=== PATIENT | male | born 1960 | race Caucasian/White ===

== ENCOUNTER 2022-04-02 07:08 | Outpatient (CLI) | payer OTHER, SELFPAY ==
[2022-04-02 10:03] LABS: Chloride* 103 mmol/L (96-114); Potassium* 4.3 mmol/L (3.6-5.1); Sodium* 141 mmol/L (135-149)
[2022-04-02 10:06] LABS: Blood Urea Nitrogen* 19 mg/dL (7-30); Carbon Dioxide* 29 mmol/L (20-32); Cholesterol* 216 mg/dL (90-199); Creatinine* 1.2 mg/dL (0.5-1.5); Estimated Glomerular Filt Rate 69 ml/min; Glucose* 107 mg/dL (60-115); Triglycerides* 112 mg/dL (40-149)
[2022-04-02 10:07] LABS: HDL Cholesterol* 57 mg/dL (>=40); LDL Cholesterol Calculated 137 mg/dL (<100)
[2022-04-02 10:10] LABS: Hemoglobin A1C* 5.85 % (0-5.6)
== END 2022-04-02 07:09 | disposition home or self-care (01) ==
PROVIDERS: PCP Family Medicine; Visit Provider Family Medicine
DX: R73.09 Other abnormal glucose (principal)
CPT/HCPCS: 36415; 80048; 80061; 83036

== ENCOUNTER 2023-03-13 11:22 | Outpatient (CLI) | payer OTHER, SELFPAY | END 2023-03-13 11:23 | disposition home or self-care (01) | PROVIDERS: PCP Family Medicine; Visit Provider Family Medicine | DX: Z01.818 Encounter for other preprocedural examination (principal); R78.5 Finding of other psychotropic drug in blood; R73.09 Other abnormal glucose; Z12.5 Encounter for screening for malignant neoplasm of prostate | CPT/HCPCS: 80048; 80061; 84153; 84460 ==

== ENCOUNTER 2023-03-30 08:35 | Outpatient (CLI) | payer OTHER, SELFPAY ==
--- NOTE | 2023-03-30 10:02 | W.ANESCHARGE ---
Anesthesia Charges Start Date/Time Anesthesia Start Date: 03/30/23 Anesthesia Start Time: 09:33 Stop Date/Time Anesthesia Stop Date: 03/30/23 Anesthesia Stop Time: 09:59
--- NOTE | 2023-03-30 10:03 | W.ANESCHARGE ---
Anesthesia Charges Start Date/Time Anesthesia Start Date: 03/30/23 Anesthesia Start Time: 09:33 Stop Date/Time Anesthesia Stop Date: 03/30/23 Anesthesia Stop Time: 09:59
== END 2023-03-30 08:36 | disposition home or self-care (01) ==
PROVIDERS: PCP Family Medicine; Visit Provider Internal Medicine Gastroenterology
DX: Z12.11 Encounter for screening for malignant neoplasm of colon (principal); K63.5 Polyp of colon
CPT/HCPCS: 00811; 45380; 88305; J2704

== ENCOUNTER 2023-04-07 12:39 | Outpatient (CLI) | payer OTHER, SELFPAY ==
[2023-04-07 13:55] VITALS: BP 174/82; PULSE 107; RESP 18
[2023-04-07] MEDS: PERFLUTREN LIPID MICROSPHERES 2 ML VIAL IV (13:57)
--- NOTE | 2023-04-07 14:24 | W.PM.STED ---
Stress Test Note Date Date of test: 04/07/23 Providers Primary care provider: Newton Mathias Stress test physician: Erick Frye Stress Test Note Stress test ordered: Stress Echo Indication for test: chest pain Stress test medicine: Definity Results discussion: This very nice 62-year-old gentleman presents for the above test after discussion the risks benefits side effects he would like to proceed, cardiac stress test medical history form is reviewed. Pretest EKG shows rhythm to be sinus, with a ventricular rate of 86, blood pressure 144/82. Patient is exercised for a total time 14 minutes, she achieved a metabolic equivalent of 14.5 Mets, test is terminated because of fulfillment of protocol, there was no chest pain shortness of breath or any other anginal equivalents. Review of the tracing showed no appreciable diagnostic ST wave depression suggestive of ischemia. Patient exercised to a very high level, and conditioning was felt to be excellent. Impression: Negative electrographic portion of stress echo Follow up suggested: Await echo imaging, Cardiology will review, clinical correlation with this will be needed. Patient left this testing facility in excellent condition.
== END 2023-04-07 13:58 | disposition home or self-care (01) ==
PROVIDERS: PCP Family Medicine; Visit Provider Family Medicine
DX: R07.9 Chest pain, unspecified (principal)
CPT/HCPCS: 93016; 93325; 93351; Q9957

== ENCOUNTER 2024-04-15 10:35 | Outpatient (CLI) | payer OTHER, SELFPAY ==
--- OUTSIDE RECORDS SUMMARY | 2024-04-15 10:37 | XMS_ITS | Clinical Summary ---
Author Organization [facility] Address [place], [place] [address] Care Team Providers Care Banquet Prep Cook Name Role Phone Newton Mathias MD Primary Care Provider + Allergies No known active allergies Medications Medication Sig Dispensed Refills Start Date End Date Status celecoxib (CeleBREX) 200 mg capsule 11/05/2021 Active atorvastatin (LIPITOR) 10 mg tabletIndications:Hyperl ipidemia, unspecified hyperlipidemia type TAKE 1 TABLET(10 MG) BY MOUTH EVERY DAY 90 Tablet 11/11/2023 Active Active Problems Problem Noted Date Diagnosed Date Colon polyp 04/01/2023 Overview (04/01/2023): Colonoscopy 03/2023 TA, repeat in 7 years Knee pain, bilateral 05/03/2015 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 Hyperplastic colon polyp 07/30/2012 Overview (03/30/2023): Colonoscopy 07/2012 polyp repeat in 10 years Osteoarthritis 06/25/2012 Hypovitaminosis D 06/25/2012 Hyperlipidemia 06/25/2012 H/O testicular cancer 06/25/2012 GERD (gastroesophageal reflux disease) 2 Overview (07/30/2012): EGD 07/2012 H. 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 Bilateral shoulder pain 06/25/2012 Bilateral ankle pain 06/25/2012 Prostatic enlargement 06/24/2012 Immunizations Name Administration Dates Next Due COVID-19 vaccine (PhosImmuneBio NTech 30mcg/0.3mL) PF, MDV 07/31/2020,07/11/2020 Influenza A (H1N1), Inactiva alek (Age >=3 Years) 05/15/2009 Influenza RIV4 (Age 18+ Year s) PRESERV FREE 04/20/2019 Influenza, IIV3 (Age 6-35 mos) 8,05/03/2013,06/02/2012,2010,04/22/2010 Influenza, IIV3 (Age >=3 years) 05/31/2014 Influenza, IIV4 05/11/2017,04/09/2016,05/16/2015 Influenza, IIV4 (=>6mos) MDV 04/17/2021 Tdap 05/03/2015 Family History Medical History Relation Name Comments GI Disease Brother Simone Cancer Father Unknown primary - possibly lung Heart Disease Father Parkinsonism Mother Cancer-colon No Family History Cancer-prostate No Family History Relation Name Status Comments Brother Father Mother Alive Social History Tobacco Use Types Packs/Day Years Used Date Smoking Tobacco: Never Smokeless Tobacco: Never Tobacco Cessation:Counseling Given: Yes Alcohol Use Standard Drinks/Week Comments Yes 0 (1 standard drink = 0.6 oz pur e alcohol) couple drinks a week PHQ-2 Answer Date Recorded PHQ-2 TOTAL SCORE 0 11/08/2021 Social Connections Answer Date Recorded Frequency of Communication with Friends and Fami ly Not on file 11/08/2021 Sex and Gender Information Value Date Recorded Sex Assigned at Not on file Gender Identity Not on file Sexual Orientation Not on file Obstetrics History Last Filed Vital Signs Vital Sign Reading Time Taken Comments Blood Pressure 120/85 11/08/2021 8:43 AM CDT Pulse 94 11/08/2021 8:43 AM CDT Temperature 36.4 ??C (97.6 ??F) 05/03/2015 9:54 AM CD T Respiratory Rate - - Oxygen Saturation 96% 11/08/2021 8:43 AM CDT Inhaled Oxygen Concentration - - Weight 90.8 kg (200 lb 3.2 oz) 11/08/2021 8:43 A M CDT Height 176 cm (5' 9.29) 11/08/2021 8:43 AM CDT Body Mass Index 29.32 11/08/2021 8:43 AM CDT Plan of Treatment Health Maintenance Due Date Last Done Comments HIV for age 15-65 1976 Zoster (shingles) series for age 50+ (1 of 2) 2011 BMI (ht and wt on same day) for age 18+ 11/08/2022 11/08/2021 Depression screening for age 12+ 11/08/2022 11/08/2021 COVID-19 vaccine series ( season) 2024 05/14/2021, 07/31/2020, 07/11/2020 Influenza for age 50-64 03/20/2024 04/17/20 21, 04/20/2019, 05/11/2017, Additional history exists Tetanus booster 05/03/2025 05/03/2015, 01/2007 (Completed outside of [facility]) Lipids for age 45-75 11/08/2026 11/08/2021, 05/03/2015, 06/15/2012 (Completed outside of [facility]) Colonoscopy through age 75 03/30/203003/30, 03/30/2023, 07/29/2012, Additional history exists Tdap Completed 05/03/2015, 05/03/2015 Hepatitis C screening for age 18-79 Completed 11/08/2021 Pneumococcal series for age 6-64 Aged Out No longer eligible based on patient's age to complete this topic Procedures Procedure Name Priority Date/Time Associated Diagnosis Comments SCAN-COLONOSCOPY 03/30/2023 12:0 0 AM CDT ANTI HCV Routine 11/08/2021 9:22 AM CDT Need for hepatitis C screening test LIPID PANEL Routine 11/08/2021 9:22 AM CDT Hyperlipidemia, unspecified hyperlipidemia type from Last 3 Months or Most Recently Relevant to Health Maintenance Results * SCAN-COLONOSCOPY (03/30/2023 12:00 AM CDT) Scanner OTHER * ANTI HCV (11/08/2021 9:22 AM CDT) HEPATITIS C ANTIBODY Non-React michael Non-React michael 11/08/2021 6:19 PM CDT [facility] Comment:Antibodies to HCV no t detected; does not exclude the possibility of exposure to HCV. Blood BLOOD SPECIMEN / Unknown Venipuncture / Unknown 11/08/2021 9:22 AM CDT 11/08/2021 9:22 AM CDT Mando Verma MD SEND OUTS [facility] [address] [place] [address], * LIPID PANEL (11/08/2021 9:22 AM CDT) CHOLESTEROL,TOTAL 160 100 - 199 mg/dL 11/08/2021 6:09 PM CDT [facility] TRIGLYCERIDES 38 <150 mg/dL 11/08/2021 6:09 PM CDT [facility] HDL CHOLESTEROL 54 >40 mg/dL 6:09 PM CDT [facility] NON-HDL CHOLESTEROL 106 <145 mg/dl 11/08/2021 6:09 PM CDT [facility] CHOL/HDL RATIO 2.96 <4.50 11/08/2021 6:09 PM CDT [facility] LDL CHOLESTEROL 98 <=130 mg/dL 11/08/2021 6:09 PM CDT [facility] VLDL CHOLESTEROL 8 <=30 mg/dL 11/08/2021 6:09 PM CDT [facility] PROVIDER ORDERED STATUS RANDOM 11/08/2021 6:09 PM CDT [facility] Blood BLOOD SPECIMEN / Unknown Venipuncture / Unknown 11/08/2021 9:22 AM CDT 11/08/2021 9:22 AM CDT Mando Verma MD CHEMISTRY [facility] [address] [place] [address] [address] [place] [address], [place] from Last 3 Months or Most Recently Relevant to Health Maintenance Care Teams Banquet Prep Cook Relationship Specialty Start Date End Date Newton Mathias MD [address] [place] [address] PCP - General Family Practice 04/14/23
== END 2024-04-15 10:36 | disposition home or self-care (01) ==
LOC: CT 10:35
PROVIDERS: PCP Family Medicine; Visit Provider Orthopaedic Surgery Sports Medicine
DX: M19.012 Primary osteoarthritis, left shoulder (principal); Z01.818 Encounter for other preprocedural examination
CPT/HCPCS: 73200; A9270

== ENCOUNTER 2024-05-11 09:22 | Outpatient (CLI) | payer OTHER, SELFPAY ==
--- OUTSIDE RECORDS SUMMARY | 2024-05-11 09:26 | XMS_ITS | Clinical Summary ---
Author Organization [facility] Address [place], [place] [address] Care Team Providers Care Local Company Tanker Driver Name Role Phone Newton Mathias MD Primary [...] Name Administration Dates Next Due COVID-19 vaccine (EnjectBio NTech 30mcg/0.3mL) PF, MDV 07/31/2020,07/11/2020 Influenza A [...] booster 05/03/2025 05/03/2015, 01/2007 (Completed outside of [facility]) Lipids for age 45-75 11/08/2026 11/08/2021, 05/03/2015, 06/15/2012 (Completed outside of [facility]) Colonoscopy through age 75 03/30/203003/30, 03/30/2023, 07/29/2012, [...] michael Non-React michael 11/08/2021 6:19 PM CDT [facility] Comment:Antibodies to HCV no t detected; does not exclude the possibility of exposure to HCV. Blood BLOOD SPECIMEN / Unknown Venipuncture / Unknown 11/08/2021 9:22 AM CDT 11/08/2021 9:22 AM CDT Mando Verma MD SEND OUTS [facility] [address] [place] [address], * LIPID PANEL (11/08/2021 9:22 AM CDT) CHOLESTEROL,TOTAL 160 100 - 199 mg/dL 11/08/2021 6:09 PM CDT [facility] TRIGLYCERIDES 38 <150 mg/dL 11/08/2021 6:09 PM CDT [facility] HDL CHOLESTEROL 54 >40 mg/dL 6:09 PM CDT [facility] NON-HDL CHOLESTEROL 106 <145 mg/dl 11/08/2021 6:09 PM CDT [facility] CHOL/HDL RATIO 2.96 <4.50 11/08/2021 6:09 PM CDT [facility] LDL CHOLESTEROL 98 <=130 mg/dL 11/08/2021 6:09 PM CDT [facility] VLDL CHOLESTEROL 8 <=30 mg/dL 11/08/2021 6:09 PM CDT [facility] PROVIDER ORDERED STATUS RANDOM 11/08/2021 6:09 PM CDT [facility] Blood BLOOD SPECIMEN / Unknown Venipuncture / Unknown 11/08/2021 9:22 AM CDT 11/08/2021 9:22 AM CDT Mando Verma MD CHEMISTRY [facility] [address] [place] [address] [address] [place] [address], [place] from Last 3 Months or Most Recently Relevant to Health Maintenance Care Teams Local Company Tanker Driver Relationship Specialty Start Date End Date Newton Mathias MD [address] [place] [address] PCP - General Family Practice 04/14/23
== END 2024-05-11 09:23 | disposition home or self-care (01) ==
PROVIDERS: PCP Family Medicine; Visit Provider Family Medicine
DX: E78.5 Hyperlipidemia, unspecified (principal); R73.09 Other abnormal glucose; Z12.5 Encounter for screening for malignant neoplasm of prostate; Z13.0 Encounter for screening for diseases of the blood and blood-forming organs and certain disorders involving the immune mechanism
CPT/HCPCS: 80048; 80061; 84460; 85025; G0103

== ENCOUNTER 2024-05-16 06:00 | Day surgery (SDC) | payer OTHER, SELFPAY ==
[2024-05-16] VITALS (19 sets, daily range): BP systolic 108–136; BP diastolic 60–90; PULSE 60–85; RESP 16–20; TEMP 36.3–36.4; O2SAT 91–99; BMI 29.7
--- OUTSIDE RECORDS SUMMARY | 2024-05-16 06:03 | XMS_ITS | Clinical Summary ---
Author Organization [facility] Address [place], [place] [address] Care Team Providers Care Lumber Driver Name Role Phone Newton Mathias MD [...] Name Administration Dates Next Due COVID-19 vaccine (ThirstyBio NTech 30mcg/0.3mL) PF, MDV 07/31/2020,07/11/2020 Influenza A [...] booster 05/03/2025 05/03/2015, 01/2007 (Completed outside of [facility]) Lipids for age 45-75 11/08/2026 11/08/2021, 05/03/2015, 06/15/2012 (Completed outside of [facility]) Colonoscopy through age 75 03/30/203003/30, 03/30/2023, 07/29/2012, [...] michael Non-React michael 11/08/2021 6:19 PM CDT [facility] Comment:Antibodies to HCV no t detected; does not exclude the possibility of exposure to HCV. Blood BLOOD SPECIMEN / Unknown Venipuncture / Unknown 11/08/2021 9:22 AM CDT 11/08/2021 9:22 AM CDT Mando Verma MD SEND OUTS [facility] [address] [place] [address], * LIPID PANEL (11/08/2021 9:22 AM CDT) CHOLESTEROL,TOTAL 160 100 - 199 mg/dL 11/08/2021 6:09 PM CDT [facility] TRIGLYCERIDES 38 <150 mg/dL 11/08/2021 6:09 PM CDT [facility] HDL CHOLESTEROL 54 >40 mg/dL 6:09 PM CDT [facility] NON-HDL CHOLESTEROL 106 <145 mg/dl 11/08/2021 6:09 PM CDT [facility] CHOL/HDL RATIO 2.96 <4.50 11/08/2021 6:09 PM CDT [facility] LDL CHOLESTEROL 98 <=130 mg/dL 11/08/2021 6:09 PM CDT [facility] VLDL CHOLESTEROL 8 <=30 mg/dL 11/08/2021 6:09 PM CDT [facility] PROVIDER ORDERED STATUS RANDOM 11/08/2021 6:09 PM CDT [facility] Blood BLOOD SPECIMEN / Unknown Venipuncture / Unknown 11/08/2021 9:22 AM CDT 11/08/2021 9:22 AM CDT Mando Verma MD CHEMISTRY [facility] [address] [place] [address] [address] [place] [address], [place] from Last 3 Months or Most Recently Relevant to Health Maintenance Care Teams Lumber Driver Relationship Specialty Start Date End Date Newton Mathias MD [address] [place] [address] PCP - General Family Practice 04/14/23
[2024-05-16] MEDS: SODIUM CHLORIDE 0.9 % (FLUSH) 10 ML SYRINGE IVF (06:41)
--- NOTE | 2024-05-16 06:54 | W.PM.H&PU ---
History & Physical Update History & Physical Update H&P Reviewed and patient assessed: No changes noted
[2024-05-16] MEDS: ACETAMINOPHEN 500 MG TABLET 1000 MG PO (06:56)
[2024-05-16] MEDS: OXYCODONE (CR) 10 MG TAB.ER.12H PO (06:56)
[2024-05-16] MEDS: CELECOXIB 200 MG CAPSULE PO (06:57)
[2024-05-16] MEDS: LACTATED RINGERS 1000 ML 1,000 ML 100 ML IV (07:15)
[2024-05-16] MEDS: MIDAZOLAM HCL 1 MG/ML inj IVP (07:16)
[2024-05-16] MEDS: fentaNYL 100 MCG/2 ML inj IVP (07:16)
--- NOTE | 2024-05-16 07:21 | SUR.PREOP ---
TIME?OUT:?0714 PT/RN/MDA?VERIFICATION?OF?SURGICAL?SITE Left Shoulder,?PROCEDURE Nerve Block,?AND?CONSENT OBTAINED?PRIOR?TO?INVASIVE?PROCEDURE.
[2024-05-16] MEDS: CEFAZOLIN 2 GM in 0.9 % SODIUM CHLORIDE Mini-bag 100 ML IVPB (07:35)
[2024-05-16] MEDS: TRANEXAMIC ACID 100 MG/ML INJ 1000 MG IV (07:40)
--- NOTE | 2024-05-16 09:33 | W.PM.NB ---
Nerve Block Nerve Block Time Seen by Provider: 07:15 Date Seen: 05/16/24 Type of block requested by surgeon for post-operative analgesia: supraclavicular Time out performed: Yes Verification of patient name: Yes Verification of date of : Yes Site marking: site marked Name of person performing procedure: Aneesh Continuous monitoring Was continuous monitoring of O2 sat, B/P, fixed income trading vice president, recorded every 15 minutes?: Yes Procedure Checklist: sterile prep, needles and gloves Ultrasound guided. Images saved: Yes Medications given in 5ml increments after negative aspiration: Marcaine %: 0.25 mL: 10 Needle gauge: 22 and Exparel mL: 10 Needle gauge: 22 Patient tolerated procedure well: Yes Block Charges Block Charge (with Pro Fee): Brachial Plexus Use of Ultrasound Machine for Block: Yes- US Guidance/pain block
--- NOTE | 2024-05-16 09:34 | W.ANESCHARGE ---
Anesthesia Charges Start Date/Time Anesthesia Start Date: 05/16/24 Anesthesia Start Time: 07:25 Stop Date/Time Anesthesia Stop Date: 05/16/24 Anesthesia Stop Time: 09:58
--- NOTE | 2024-05-16 09:52 | CRLHL7_ITS ---
For Patients: As a result of the Century Cures Act, medical imaging exams and procedure reports are released immediately into your electronic medical record. You may view this report before your referring provider. If you have questions, please contact your health care provider. Indication: Postop left shoulder replacement Technique: Three views left shoulder Comparison: Left shoulder 03/04/2024 Findings/Impression: The patient is status post left shoulder replacement with near anatomic alignment. No evidence of fracture surrounding the hardware. Acromioclavicular joint unremarkable. Dictated by Hayden Christy MD @ 05/16/2024 10:25:14 AM (Electronically Signed)
--- NOTE | 2024-05-16 10:01 | W.ANESCHARGE ---
Anesthesia Charges Start Date/Time Anesthesia Start Date: 05/16/24 Anesthesia Start Time: 07:25 Stop Date/Time Anesthesia Stop Date: 05/16/24 Anesthesia Stop Time: 09:58
--- NOTE | 2024-05-17 08:04 | PM.ORPRC ---
Procedure Note Date of procedure: 05/16/24 Procedure: PREOPERATIVE DIAGNOSIS: 1. Left shoulder osteoarthrosis, primary, severe POSTOPERATIVE DIAGNOSIS: 1. Left shoulder osteoarthrosis, primary, severe 2. Left shoulder long head of biceps tendinopathy / tenosynovitis PROCEDURE: 1. Left total shoulder arthroplasty-anatomic. 2. Left shoulder long head of biceps open tenodesis] SURGEON: Errol Davidson MD. DANCE TEACHER: Mando Beverly PA-C; Antonio SMITH - Of note, a skilled speech language pathology assistant was critical for this case to aid in patient positioning, tissue retraction, limb manipulation/positioning, awareness of and protection of critical structures, and closure. ANESTHESIA: General plus interscalene block EBL: 100 mL IMPLANTS: Tornier Simplicity Shoulder System. Size 2 Blazer. 48 x 18 mm humeral head; Medium Perform+ 25? glenoid with a 40mm radius of curvature - cortilock central peg with cemented peripheral pegs COMPLICATIONS: None evident INDICATIONS: The patient is a pleasant 63-year-old male who has experienced severe left shoulder pain and difficulty with use. Workup included x-rays which revealed severe osteoarthrosis. Physical exam was consistent with associated pain. Given the deformity, the dysfunction, and the pain, recommendation was made for surgery. DESCRIPTION OF PROCEDURE: Following a thorough discussion of risks, benefits, and alternatives, consent was obtained and the left shoulder was marked. The patient was brought to the operating room and placed supine on the operating table. Induction of anesthesia was undertaken. 2 g IV Ancef and 1 g tranexamic acid was administered within 1 hr of incision preoperatively. Appropriate time-out was performed identifying proper patient, site, and procedure. The operative extremity was prepped and draped in the appropriate sterile fashion using ChloraPrep after the patient was positioned in the beach chair with head in neutral alignment and all bony prominences well padded. A longitudinal incision was made for deltopectoral approach. Deltoid and cephalic vein were retracted laterally and spared throughout the case. The clavipectoral fascia was identified and divided longitudinally staying lateral to the conjoined tendon / coracoid. The conjoined tendon was protected with a blunt Hohmann. The long head of the biceps tendon was identified and tenodesis performed suturing it to the pectoralis major tendon at their confluence. The upper 1cm of the pectoralis major was 1st released from its insertion. The superior portion of the rotator cuff was inspected and found to have good integrity. The subscapularis was released from its lesser tuberosity via a tenotomy down through the 3 sisters which were cauterized. After releasing the subscapularis, the capsule was released from the inferior humeral neck allowing us to remove the inferior humeral head osteophyte. The subscapularis was also released from the superior glenohumeral ligament and middle glenohumeral ligament. It was then tucked into the subscapularis fossa anteriorly, and we turned our attention to the humeral preparation. The humerus was dislocated, and humeral head cut performed paying attention to the patient's lower elwha version anatomy. With the simplicity protocol, the guide pin was drilled through the lateral humeral cortex, a Blazer size 2 was applied, and the humerus was planed. The humerus was then protected with a plate and attention was turned to the glenoid preparation. The humerus was retracted posteriorly. The subscap was protected anteriorly and the labrum was released along the glenoid anterior, inferior and posterioinferior regions via combination of Bovie cautery or 15 blade. Based on the preoperative CT scan of the shoulder, the shoulder was found have approximately 25? of retroversion to the 'B2' type glenoid. The goal of correction was to make this neutral between reaming and an augmented/wedged glenoid component. The blueprint 3D printed guide/jog was applied to the lower elwha glenoid. The guide pin was placed and the subsequent preparation performed with Reamer down to cortical/subchondral bone, followed by the rotation alignment hole, angled Reamer, peripheral pegs, and central boss drill. A glenoid trial was placed with good security, and the real glenoid implant opened. Cement was mixed on the back table. Thorough irrigation normal saline of the glenoid vault was performed with suction of the peg holes. Cement into the 3 peripheral peg holes was performed and the glenoid component inserted and held until cement had cured. We then turned our attention back to the humerus. Consistent with the preop planning, the appropriate head was selected, trialed, and found have an excellent fixation and tension. 50% bounce-back was visualized with posterior directed force, internal rotation was achieved to 60? comfortably while the shoulder was abducted to 90?, and the conjoined tendon had good tension. At this stage, a 3 min Betadine soak was performed followed by a thorough irrigation with normal saline. Subscapularis was reapproximated with # 1 PDS (x4). The rotator interval was reapproximated as well. The deltopectoral interval was reapproximated with 0 Vicryl, subcutaneous and subcuticular closure was then performed with number 2-0 Vicryl and 4-0 Monocryl, respectively. A skilled speech language pathology assistant was critical for this case to aid in patient positioning, tissue retraction, bone exposure, limb manipulation/positioning, shoulder dislocation/relocation, patient safety, and closure. PLAN: 1. Sling much of the time to operative extremity. May come out of this for elbow, forearm, wrist, and digit range of motion and pendulums, or when sedentary. 2. PT/OT consults for education and assistance. 3. Tylenol, Ibuprofen, and/or Oxycodone for analgesics PRN. 4. 14 days doxycycline PO. 5. Early ambulation encouraged.
== END 2024-05-16 13:48 | disposition home or self-care (01) ==
LOC: OR 06:01
PROVIDERS: PCP Family Medicine; Visit Provider Orthopaedic Surgery Sports Medicine
PROC: 0RRJ0JZ Replacement of Right Shoulder Joint with Synthetic Substitute, Open Approach (ICD-10-PCS; CPT 23472; principal; 2024-05-16 07:15)
DX: M19.012 Primary osteoarthritis, left shoulder (principal); G89.18 Other acute postprocedural pain; M75.22 Bicipital tendinitis, left shoulder; M65.812 Other synovitis and tenosynovitis, left shoulder
CPT/HCPCS: 23472; 23430; 01638; 64415; 73030; 76942; 97165; 97535; A9270; C1776; C9290; J0330; J0665; J0690; J1100; J2250; J2405; J2704; J3010; J3490; J7120

== ENCOUNTER 2024-08-01 11:15 | Outpatient (RCR) | payer OTHER, SELFPAY | END 2024-11-29 23:59 | disposition home or self-care (01) | PROVIDERS: PCP Family Medicine; Visit Provider Orthopaedic Surgery Sports Medicine | DX: M19.012 Primary osteoarthritis, left shoulder (principal); Z96.612 Presence of left artificial shoulder joint; Z51.89 Encounter for other specified aftercare | CPT/HCPCS: 97110; 97140; 97161 ==

== ENCOUNTER 2025-01-23 08:00 | Emergency (ER) | payer OTHER, SELFPAY ==
--- NOTE | 2025-01-23 08:02 | MR_ITS ---
EXAM: MRI of the LEFT KNEE, without contrast CLINICAL: Male, 64 years old, with left knee pain. INDICATION: Evaluate for left knee internal derangement etiology. PRIOR SURGERY: Reported history of partial meniscectomy. PLAIN FILMS: 08/28/2020 radiographic series left knee. COMPARISONS: 12/07/2012 MRI of the left knee. TECHNICAL: Using a 1.5 Eloisa MR scanner and a localizing surface coil: 3.0 mm?sagittals: PD, PDFS 3.0 mm?coronals: PD, STIR 3.0 mm?axials: PD, T2FS SEDATION: None. CONTRAST: None. IMPRESSION: 1. Inferior surface irregularity of the medial meniscus posterior horn with questioned adjacent subluxation of meniscal segment towards the inferior meniscosynovial recess. 2. Approximately 1 cm attenuation/irregularity of inferior surface and adjacent apex of junction of lateral meniscus posterior horn. 3. 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 4. Small towards moderate knee effusion and popliteal cyst. 5. No acute or convincing chronic cruciate or collateral ligament injuries. FINDINGS: Knee joint: Effusion: Small towards moderate left knee effusion. Popliteal cyst: Small elongate popliteal cyst with some adjacent uncontained edema/fluid as could reflect an element of cyst rupture/leakage. Loose bodies: Small 5 x 1.5 mm chondral loose body in the far posterior knee superior to the medial meniscus posterior root (sagittal image 13). No other convincing discrete loose bodies. Subcutaneous and extra-articular soft tissues: Unremarkable. Ligaments: ACL: Intact and normal. PCL: Intact and normal. MCL: Intact and normal. FCL: Intact and normal. Posterolateral corner: Intact popliteus, biceps femoris, iliotibial band, popliteofibular ligament and lateral gastrocnemius. Posteromedial corner: Intact pes anserinus and posterior oblique ligament. Extensor mechanism: Patellar tendon: Intact and normal. Quadriceps tendon: Intact and normal. Retinacula: Intact and normal. Fat pads: Unremarkable. Medial compartment: Medial meniscus: Small less than 1 cm ill-defined shallow inferior surface signal alteration reflecting degeneration and likely some inferior surface fraying of the medial meniscus posterior horn, without larger tear (sagittal PDFS series 6, images 10-8). However, adjacent and peripheral to this deformity is questioned small slender meniscal flap segment subluxed towards/into the inferior meniscosynovial recess (coronal images 20-17). No parameniscal cyst. No posterior root disruption or peripheral meniscal extrusion. Medial femoral condyle: Up to 20 x 9 mm grade III-IV chondromalacia/defect of the central into the anterior aspect and medial femoral condyle is accompanied by slight subjacent reactive bone marrow edema (coronal STIR series 8, images 18-12). Medial tibial plateau: No demonstrable chondromalacia. Lateral compartment: Lateral meniscus: Approximately 1 cm deformity/attenuation of inferior surface into adjacent to apical free edge of the lateral meniscus posterior horn is not seen to be associated with displaced meniscal fragment (sagittal images 22-25). Lateral femoral condyle: Approximately 15 x 15 mm grade III-IV chondromalacia/defect of the junction of the central and posterior lateral femoral condyle is accompanied by slight underlying cortical irregularity/hyperostosis, without subjacent reactive marrow edema at this time (sagittal images 20-23; coronal STIR series 8, image 23-20). Lateral tibial plateau: Grade II-III chondromalacia/thinning and some irregularity of the central into posterior lateral tibial plateau is not associated with subjacent reactive marrow edema at this time. Patellofemoral joint: Patella: Broad-based grade III-IV chondromalacia/loss of most of the patella is accompanied by smaller areas of slight to mild subjacent reactive marrow edema and slight marginal osteophyte formation (axial images 5-13). Trochlea: Also broad-based approximately 40 x 25 grade III-IV chondromalacia/loss of much of femoral trochlea is associated very small focus of slight subjacent reactive marrow edema at its medial extent. Proximal tibiofibular joint: Unremarkable. Bones: No other marrow edema or fractures. Neurovascular: Popliteal artery/vein: Normal. Anterior tibial artery: No aberrant variant. Tibial nerve: Normal. Popliteal nerve: Normal. Common peroneal nerve: Normal. [facility] Electronically signed on 01/24/2025 10:28:00 AM by Yonatan Zavaleta M.D.
--- OUTSIDE RECORDS SUMMARY | 2025-01-23 08:02 | XMS_ITS | Clinical Summary ---
Author Organization [facility] Address [address] [place] [id number] Care Team Providers Care Wedding Photographer Name Role Phone Newton Mathias MD Primary Care Provider + Allergies No known active allergies Medications celecoxib (CeleBREX) 200 mg capsule 2 Active atorvastatin (LIPITOR) 10 mg tabletIndications:H yperlipidemia, unspecified hyperlipidemia type TAKE 1 TABLET(10 MG) BY MOUTH EVERY DAY 90 Tablet 4 Active Active Problems Problem Noted Date Diagnosed [...] ankle pain 06/25/2012 Prostatic enlargement 06/24/2012 Immunizations Immunization Administration Dates Next Due COVID-19 vaccine (Filecubed-Bio NTech 30mcg/0.3mL) PF, MDV 07/31/2020,07/11/2020 Influenza A [...] Recorded Sex Assigned at Not on file Legal Sex Male 6:25 AM [employer] Gender Identity Not on file Sexual Orientation Not on file Obstetrics History Last Filed Vital Signs Vital Sign Reading Time Taken Comments Blood Pressure 120/85 11/08/2021 8:43 AM CDT Pulse 94 11/08/2021 8:43 AM CDT Temperature 36.4 C (97.6 F) 05/03/2015 9:54 AM CDT Respiratory Rate - - Oxygen Saturation 96% 11/08/2021 8:43 AM CDT Inhaled Oxygen Concentration - - Weight 90.8 kg (200 lb 3.2 oz) 11/08/2021 8:43 A M CDT Height 176 cm (5' 9.29) 11/08/2021 8:43 AM CDT Body Mass Index 29.32 11/08/2021 8:43 AM CDT Plan of Treatment Health Maintenance Due Date Last Done Comments HIV for age 15-65 1976 Pneumococcal series for age 50+ (1 of 1 - PCV) 2011 Zoster (shingles) series for age 50+ (1 of 2) 2011 BMI (ht and wt on same day) for age 18+ 11/08/2022 11/08/2021 Depression screening for age 12+ 11/08/2022 11/08/2021 COVID-19 vaccine series ( season) 2024 05/14/2021, 07/31/2020, 07/11/2020 Influenza Vaccine (#1) 2025 , 04/20/2019, 04/21/2018, Additional history exists Tetanus booster 05/03/2025 05/03/2015, 01/2007 (Completed outside of [facility] [employer]) Lipids for age 45-75 11/08/2026 11/08/2021, 05/03/2015, 06/15/2012 (Completed outside of [facility] [employer]) Colonoscopy through age 75 03/30/203003/30, 03/30/2023, 07/29/2012, Additional history exists RSV vaccine for adults or (1 - 1-dose 75+ series) 2036 Hepatitis C screening for age 18-79 Completed 11/08/2021 Hepatitis B series for 19+ Aged Out N o longer eligible based on patient's age to [...] Results * SCAN-COLONOSCOPY (03/30/2023 12:00 AM CDT) us Scanner OTHER Final Result * ANTI HCV (11/08/2021 9:22 AM CDT) HEPATITIS C ANTIBODY Non-React michael Non-React michael 11/08/2021 6:19 PM CDT [facility] Comment:Antibodies to HCV no t detected; does not exclude the possibility of exposure to HCV. Blood BLOOD SPECIMEN / Unknown Venipuncture / Unknown 11/08/2021 9:22 AM CDT 11/08/2021 9:22 AM CDT us Mando Verma MD SEND OUTS Final Resu lt [facility] [address] [place] [address], [place] * LIPID PANEL (11/08/2021 9:22 AM CDT) Pathologist [facility] CHOLESTEROL,TOTAL 160 100 - 199 mg/dL 11/08/2021 6:09 PM CDT [facility] TRIGLYCERIDES 38 <150 mg/dL 11/08/2021 6:09 PM CDT [facility] HDL CHOLESTEROL 54 >40 mg/dL 6:09 PM CDT [facility] NON-HDL CHOLESTEROL 106 <145 mg/dl 11/08/2021 6:09 PM CDT [facility] CHOL/HDL RATIO 2.96 <4.50 11/08/2021 6:09 PM CDT [facility] LDL CHOLESTEROL 98 <=130 mg/dL 11/08/2021 6:09 PM CDT [facility] VLDL CHOLESTEROL 8 <=30 mg/dL 11/08/2021 6:09 PM CDT [facility] PROVIDER ORDERED STATUS RANDOM 11/08/2021 6:09 PM CDT [facility] Blood BLOOD SPECIMEN / Unknown Venipuncture / Unknown 11/08/2021 9:22 AM CDT 11/08/2021 9:22 AM CDT us Mando Verma MD CHEMISTRY Final Resu lt [facility] [address] [place] [address], [place] from Last 3 Months or Most Recently Relevant to Health Maintenance Care Teams Wedding Photographer Relationship Specialty Start Date End Date Newton Mathias MD [address] [place] [address] PCP - General Family Practice 04/14/23
--- NOTE | 2025-01-23 08:14 | ED.GENADULT ---
HPI - General Adult General Chief complaint: Extremity Pain/Injury, Lower Stated complaint: left knee pain Time Seen by Provider: 01/23/25 08:04 Source: patient Mode of arrival: ambulatory Limitations: no limitations History of Present Illness HPI narrative: Patient presents with acute knee pain and swelling that started after golfing about 5 days ago. Partial meniscectomy in the past. Could not walk. Pain sharp in the medial and anterior knee, along joint line. Related Data Home Medications ?Medication ?Instructions ?Recorded ?Confirmed desonide 0.05 % topical ointment 1 applic topical .BIDQ2W 05/10/24 06/28/24 ketoconazole 2 % shampoo 1 applic topical .2-3XW 05/10/24 06/28/24 tazarotene 0.1 % topical cream 1 applic topical QDAY 05/10/24 06/28/24 celecoxib 200 mg capsule (Celebrex) 200 mg PO QDAY PRN 05/11/24 05/26/24 Previous Rx's ?Medication ?Instructions ?Recorded amoxicillin 500 mg capsule 2,000 mg (4 x 500 mg) PO ONCE #20 03/13/23 Held on 05/16/24. caps Instructions: Resume on 06/13/24. atorvastatin 20 mg tablet 20 mg PO QDAY #90 tabs 03/13/23 mupirocin 2 % topical ointment 1 applic topical TID #22 grams 05/09/24 doxycycline monohydrate 100 mg 100 mg PO BID #14 caps 05/16/24 capsule cephalexin 500 mg capsule 500 mg PO TID #30 caps 10/13/24 Allergies Allergy/AdvReac Type Severity Reaction Status Date / Time No Known Drug Allergies Allergy Verified 06/28/24 13:54 Review of Systems Status of ROS: Reports: 6 or more systems reviewed and unremarkable except as noted in History and below [facility] Medical History Osteoarthritis of left shoulder ?M19.012 - Primary osteoarthritis, left shoulder (ICD-10) History of testicular cancer ?Z85.47 - Personal history of malignant neoplasm of testis (ICD-10) Hyperlipidemia ?E78.5 - Hyperlipidemia, unspecified (ICD-10) Surgical History History of arthroplasty of left shoulder (05/17/24) ?Z96.612 - Presence of left artificial shoulder joint (ICD-10) History of arthroscopy of right knee (10/29/12) ?Z98.890 - Other specified postprocedural states (ICD-10) History of arthroscopy of left knee (12/10/12) ?Z98.890 - Other specified postprocedural states (ICD-10) History of arthroplasty of right shoulder (05/23/19) ?Z96.611 - Presence of right artificial shoulder joint (ICD-10) History of unilateral orchiectomy ?Z90.79 - Acquired absence of other genital organ(s) (ICD-10) History of appendectomy ?Z90.49 - Acquired absence of other specified parts of digestive tract (ICD-10) Family History Father Cancer Social History Narrative: , 2 kids, 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 Alert and oriented. Answers questions appropriately. Mood and affect are appropriate. Thoughts are goal oriented and rational. No tangential or magical thinking noted. Patient speaks in full sentences without needing to catch his breath. HEENT: Normocephalic atraumatic. Pupils are equally round reactive to light. Extraocular muscles are intact. Conjunctivae are moist without any icterus noted. Extremities: Swollen left knee no warmth. Joint effusion present. Limited range of motion. Const: Vital Signs, click to edit/add: Vital Signs - 24 hr 01/23/25 08:30 Temperature 98 F Pulse Rate [Right Pulse Oximeter] 66 Respiratory Rate 18 Blood Pressure [Ri ght Upper Arm] 147/92 H Pulse Oximetry 99 Oxygen Delivery Me thod Room Air Course Course ED Course: MRI ordered. Vital Signs Vital signs: Initial Vital Signs Temperature 98 F 01/23/25 08:30 Temperature Source Temporal Artery Scan 01/23/25 08:30 Pulse Rate 66 01/23/25 08:30 Pulse Rhythm Regular 01/23/25 08:30 Pulse Strength 3+ Normal 01/23/25 08:30 Respiratory Rate 18 01/23/25 08:30 Blood Pressure 147/92 H 01/23/25 08:30 Blood Pressure Mean 110 H 01/23/25 08:30 Blood Pressure Position Sitting 01/23/25 08:30 Pulse Oximetry 99 01/23/25 08:30 Oxygen Delivery Method Room Air 01/23/25 08:30 Vital Signs Temperature 98 F 01/23/25 08:30 Pulse Rate 66 01/23/25 08:30 Respiratory Rate 18 01/23/25 08:30 Blood Pressure 147/92 H 01/23/25 08:30 Pulse Oximetry 99 01/23/25 08:30 Oxygen Delivery Method Room Air 01/23/25 08:30 Temperature 98 F 01/23/25 08:30 Pulse Rate 66 01/23/25 08:30 Respiratory Rate 18 01/23/25 08:30 Blood Pressure 147/92 H 01/23/25 08:30 Pulse Oximetry 99 01/23/25 08:30 Oxygen Delivery Method Room Air 01/23/25 08:30 Medical Decision Making MDM Narrative Medical decision making narrative: Knee pain. MRI ordered to rule out meniscal injury. Ortho follow-up tomorrow. Discharge Plan Discharge Clinical Impression: Knee pain Patient Disposition: Home, Self-Care Condition: Stable Prescriptions: No Action tazarotene 0.1 % cream 1 applic topical QDAY Rx Instructions: Apply to affected areas on the forehead 1X daily at night. Start every other night then increase to nightly as tolerated. desonide 0.05 % ointment 1 applic topical .BIDQ2W Rx Instructions: Apply thin layer to affected areas on scalp 2X daily for up to 2 weeks, then take 2 weeks off. Repeat as needed for flares. ketoconazole 2 % shampoo 1 applic topical .2-3XW Rx Instructions: Wash affected area on scalp 2-3 times weekly in the shower. Lather and let sit 2-3 minutes prior to rinsing. celecoxib [Celebrex] 200 mg capsule 200 mg PO QDAY PRN amoxicillin 500 mg capsule 2,000 mg PO ONCE Qty: 20 3RF Rx Instructions: Take 4 capsules (2000mg) 1 hour prior to dental appointment. atorvastatin 20 mg tablet 20 mg PO QDAY Qty: 90 3RF doxycycline monohydrate 100 mg capsule 100 mg PO BID Qty: 14 0RF mupirocin 2 % ointment 1 applic topical TID Qty: 22 2RF cephalexin 500 mg capsule 500 mg PO TID Qty: 30 2RF Follow Up/Referrals: Newton Mathias MD [Primary Care Provider, Family Practice] Stand Alone Forms: [employer] Info Instructions
[2025-01-23 08:30] VITALS: BP 147/92; PULSE 66; RESP 18; TEMP 36.6; O2SAT 99
== END 2025-01-23 09:35 | disposition home or self-care (01) ==
LOC: ED 09:33
PROVIDERS: Emergency Provider Family Medicine; PCP Family Medicine
DX: M25.562 Pain in left knee (principal); Y93.53 Activity, golf
CPT/HCPCS: 73721; 99283; 99284